=== PATIENT | male | born 1995 | race Caucasian/White ===

== ENCOUNTER 2018-03-20 13:05 | Emergency (ER) | payer OTHER ==
[2018-03-20 13:49] VITALS: BP 137/82
[2018-03-20] MEDS ORDERED: Ibuprofen TAB* 400 MG PO ONE (15:15)
--- NOTE | 2018-03-20 16:04 | RAD ---
Indication: Right foot pain. 3 views of the right foot demonstrates no fracture. No other bone or joint abnormalities identified. IMPRESSION: No fracture of the right foot is noted.
--- NOTE | 2018-03-20 16:41 | UC ---
Lower Extremity/Ankle HPI - HPI Summary HPI Summary: 22-year-old male no past medical history presents three days after playing rugby , suffered an injury to his right foot at that time, continued to play that day , has been worsening with increasing pain and swelling along the dorsum of the right foot and right ankle. Has been using crutches. Denies any weakness or numbness of the toes. - History of Current Complaint Chief Complaint: UCLowerExtremity Stated Complaint: RIGHT FOOT INJURY Pain Intensity: 4 - Allergies/Home Medications Allergies/Adverse Reactions: Allergies Allergy/AdvReac Type Severity Reaction Status Date / Time Penicillins Allergy Rash Verified 03/20/18 13:44 Home Medications: Home Medications Ibuprofen TAB* [Advil TAB*] 800 mg PO Q6H PRN 03/20/18 [History Confirmed ] PMH/Surg Hx/FS Hx/Imm Hx - Additional Past Medical History Additional PMH: Patient denies any past medical history Previously Healthy: Yes - Surgical History Surgical History: None - Social History Alcohol Use: Occasionally Substance Use Type: None Smoking Status (MU): Never Smoked Tobacco Review of Systems Constitutional: Negative Skin: Negative Respiratory: Negative Cardiovascular: Negative Motor: Negative Musculoskeletal: Other: - swelling of the right foot and ankle as described in history of present illness All Other Systems Reviewed And Are Negative: Yes Physical Exam - Summary Physical Exam Summary: Gen: alert, in no acute distress HEENT: EOMI, normocephalic, atruamatic Neck: supple, no masses CV: Normal s1 s2, no murmurs Resp: normal breath sounds b/l GI: no tenderness, no masses Musculoskeletal: Swelling and tenderness to the right foot and ankle, mild swelling along the posterior right lateral malleolus and right lateral forefoot. Normal distal neurovascular exam. Neuro: no obvious focal neurological deficits Skin: no rash Lymph: no lymphadenopathy Psych: appropriate affect, oriented Triage Information Reviewed: Yes Vital Signs: Initial Vital Signs Temp 36.2 C 03/20/18 13:44 Pulse 66 03/20/18 13:44 Resp 14 03/20/18 13:44 BP 137/82 03/20/18 13:44 Pulse Ox 100 03/20/18 13:44 Diagnostics - Radiology x-ray of foot and ankle Xray Interpretation: No Acute Changes Radiology Interpretation Completed By: ED Physician Lower Extremity Course/Dx - Course Course Of Treatment: X-ray negative for any traumatic injuries, patient placed in an air splint and instructed to continue using crutches. Agrees to and understands discharge instructions. - Differential Dx/Diagnosis Provider Diagnoses: Right ankle sprain Discharge - Sign-Out/Discharge Documenting (check all that apply): Patient Departure All imaging exams completed and their final reports reviewed: Yes - Discharge Plan Condition: Stable Disposition: HOME Patient Education Materials: Foot Contusion (ED), Foot Sprain (ED) Forms: *School Release, *Work Release Referrals: No Primary Care Phys,NOPCP [Primary Care Provider] - Ana Parisi MD [Medical Doctor] - Manuel Bro MD [Medical Doctor] - Additional Instructions: PLEASE MAKE AN APPOINTMENT TO BE SEEN BY YOUR PRIMARY CARE DOCTOR WITHIN 1-2 WEEKS PLEASE USE CRUTCHES WHILE WALKING PLEASE REPORT TO THE ER FOR ANY WORSENING OR CONCERNING SYMPTOMS - Billing Disposition and Condition Condition: STABLE Disposition: Home
--- NOTE | 2018-03-20 16:49 | RAD ---
INDICATION: Left ankle injury. TECHNIQUE: 2 views of the left ankle were obtained. FINDINGS: Soft tissue swelling is noted along the anterolateral aspect of the ankle. No fracture is seen. Joint spaces appear maintained. IMPRESSION: SOFT TISSUE SWELLING, NO FRACTURE IS SEEN.
== END 2018-03-20 17:04 | disposition home or self-care (01) ==
LOC: UCCORT 13:05
DX: S93.401A Sprain of unspecified ligament of right ankle, initial encounter (principal); X58.XXXA Exposure to other specified factors, initial encounter; Y93.69 Activity, other involving other sports and athletics played as a team or group; Y92.328 Other athletic field as the place of occurrence of the external cause; Z88.0 Allergy status to penicillin
CPT/HCPCS: 99202; A9270-GY; G0463